=== PATIENT | male | born 1970 | race Caucasian/White ===

== ENCOUNTER → 2022-11-20 | Outpatient (CLI) | payer OTHER ==
[2022-11-20 09:29] LABS: BASO # 0.04 K/mm3 (0.02-0.10); EOS # 0.24 K/mm3 (0.04-0.40); EOS % 2.7 % (0.0-4.0); HEMATOCRIT 47.9 % (42.0-52.0); HEMOGLOBIN 16.3 g/dL (13.5-18.0); LYMPH# 1.16 K/mm3 (1.50-4.00); MEAN CELL VOLUME 92 fl (78-100); MEAN CORPUSCULAR HEMOGLOBIN 31 pg (27-31); MEAN CORPUSCULAR HGB CONC 34 g/dL (33-37); MEAN PLATELET VOLUME 9.5 fl (7.4-10.4); NEU # 6.75 K/mm3 (1.40-6.50); PLATELET COUNT 213 K/mm3 (130-400)
[2022-11-20 09:31] LABS: POTASSIUM 4.4 mmol/L (3.5-5.1)
[2022-11-20 09:32] LABS: ALBUMIN 4.6 g/dL (3.5-5.0)
[2022-11-20 09:33] LABS: CALCIUM 9.7 mg/dL (8.3-10.5)
[2022-11-20 09:34] LABS: TOTAL PROTEIN 7.5 g/dL (6.4-8.3)
[2022-11-20 09:36] LABS: TOTAL BILIRUBIN 0.8 mg/dL (0.2-1.2)
== END ==
LOC: LAB 09:04
PROVIDERS: Internal Medicine
DX: Z00.00 Encounter for general adult medical examination without abnormal findings (principal); Z12.5 Encounter for screening for malignant neoplasm of prostate; Z12.11 Encounter for screening for malignant neoplasm of colon; B35.4 Tinea corporis

== ENCOUNTER → 2023-05-31 | Day surgery (SDC) | payer OTHER | END | disposition home or self-care (01) | LOC: MSO 07:21 | DX: Z12.11 Encounter for screening for malignant neoplasm of colon (principal); F17.220 Nicotine dependence, chewing tobacco, uncomplicated | CPT/HCPCS: 00812; J1920; J2704; J3010; J7120 ==

== ENCOUNTER → 2024-01-14 | Outpatient (CLI) | payer OTHER ==
[2024-03-04 10:42] LABS: ALBUMIN 4.4 g/dL (3.5-5.0); CALCIUM 9.3 mg/dL (8.3-10.5); MAGNESIUM 1.71 mg/dL (1.60-2.60); TOTAL PROTEIN 7.4 g/dL (6.4-8.3)
[2024-03-04 11:21] LABS: BASO # 0.06 K/mm3 (0.02-0.10); EOS # 0.28 K/mm3 (0.04-0.40); EOS % 5.3 % (0.0-4.0); HEMATOCRIT 44.9 % (42.0-52.0); HEMOGLOBIN 15.3 g/dL (13.5-18.0); LYMPH# 1.32 K/mm3 (1.50-4.00); MEAN CELL VOLUME 92 fl (78-100); MEAN CORPUSCULAR HEMOGLOBIN 31 pg (27-31); MEAN CORPUSCULAR HGB CONC 34 g/dL (33-37); MEAN PLATELET VOLUME 9.2 fl (7.4-10.4); MONO # 0.58 K/mm3 (0.20-0.80); NEU # 3.04 K/mm3 (1.40-6.50); PLATELET COUNT 269 K/mm3 (130-400); RED BLOOD COUNT 4.87 M/mm3 (4.20-5.60); RED CELL DISTRIBUTION WIDTH 12.1 % (11.5-14.5); WHITE BLOOD COUNT 5.3 K/mm3 (4.8-10.8)
== END ==
LOC: LAB 09:44
PROVIDERS: Internal Medicine
DX: Z00.00 Encounter for general adult medical examination without abnormal findings (principal); Z12.5 Encounter for screening for malignant neoplasm of prostate